=== PATIENT | female | born 1970 | race Caucasian/White ===

== ENCOUNTER 2025-06-12 18:12 | Emergency (ER) | payer OTHER, SELFPAY ==
[2025-06-12 18:14] VITALS: BP 123/68
[2025-06-12 18:41] LABS: Hematocrit 35.4 % (37.0-47.0); Hemoglobin 11.3 g/dL (12.0-16.0); Mean Corp Hgb Conc. 31.9 g/dL (33.0-37.0); Mean Corpuscular Volume 79.4 fL (81.0-99.0); Nucleated Red Blood Cells % 0 %; Platelet Count 398 10^3/uL (130-400); Red Cell Dist. Width 17.7 % (11.5-14.5)
[2025-06-12 19:00] LABS: ALT (SGPT) 12 U/L (0-35); AST (SGOT) 21 U/L (14-36); Albumin 3.7 g/dl (3.5-5.0); Alkaline Phosphatase 70 U/L (38-126); Blood Urea Nitrogen 8 mg/dl (7-17); Calcium 8.9 mg/dl (8.4-10.2); Carbon Dioxide 24 mmol/L (22-30); Chloride 101 mmol/L (98-107); Glucose 94 mg/dl (70-99); Lipase 101 U/L (23-300); Potassium 4.1 mmol/L (3.5-5.1); Sodium 135 mmol/L (135-145); Total Protein 7.3 g/dl (6.3-8.2); eGFR > 60.00
[2025-06-12 19:34] LABS: D-Dimer 2.98 ug/mlFEU (0.00-0.50)
[2025-06-12 20:33] VITALS: BMI 28.9
--- NOTE | 2025-06-12 21:43 | ED.GENMED ---
History of Present Illness
General
Chief Complaint: Abdominal Pain
Source: patient
Time Seen by Provider: 06/12/25 21:27
History of Present Illness
History of Present Illness:
55-year-old female presents to the emergency room complaining of abdominal pain, nausea, vomiting and decreased output of stool into her colostomy. Patient has a history of colorectal cancer. She had surgery at [facility] in 2019. She is currently
undergoing care with oncology at [facility] but through their [place] office. Patient denies any fever or chills. She states at this point she cannot tolerate any oral intake. Patient has taken some oral laxatives without
improvement.
Phy Exam
Physical Exam
Physical Exam:
General: Awake, Alert, Oriented X3. No acute distress.
Vitals: unremarkable
Head: Atraumatic
Eyes: Pupils equal, EOMI
Throat: Airway intact, no exudates
Neck: Trachea midline
Lungs: Clear and equal b/l
Heart: Regular rate, no murmurs
Abd: Soft, diffusely tender, N colostomy prosthesis in place, no stool in the bag, is able to pass a cotton-tipped applicator through the stoma do not encounter any hard stool within the first centimeter or so
Neuro: Nonfocal
Skin: Warm, dry, no rash
Extremities: pulses equal b/l, no edema
Course
Orders/Labs/Results
Orders:
Orders
06/12/25 18:22
Electrocardiogram (*1) Urgent
Reason for Study: Abdominal Pain
EKG- Treatment ONCE
06/12/25 18:28
Complete Blood Count/With Diff Urgent
Comprehensive Metabolic Panel Urgent
DDimer [D-Dimer] Urgent
Lipase Urgent
06/12/25 21:41
0.9% Sodium Chloride 1000 ml [Nss] 1,000 ml IV BOLUS
HYDROmorphone [Dilaudid] 1 mg IV NOW STA
06/12/25 21:42
CT Abd/pelvis W Iv Cont Urgent
Comment:
Reason For Exam: abd pain, no output into stoma
Abnormal Lab Results
06/12/25
18:28
Hgb 11.3 L g/dL
(12.0-16.0)
Hct 35.4 L %
(37.0-47.0)
MCV 79.4 L fL
(81.0-99.0)
MCH 25.3 L pg
(27.0-31.0)
MCHC 31.9 L g/dL
(33.0-37.0)
RDW 17.7 H %
(11.5-14.5)
Absolute Lymphs (auto) 0.7 L 10^3/uL
(1.2-3.4)
Absolute Monos (auto) 0.7 H 10^3/uL
(0.1-0.6)
Lymphocytes % 12.6 L %
(20.5-51.1)
Monocytes % 11.9 H %
(1.7-9.3)
D-Dimer 2.98 H ug/mlFEU
(0.00-0.50)
06/12/25 18:28
06/12/25 18:28
Vital Signs
Initial and Last Documented VS:
Initial Vital Signs
Temp Pulse Resp BP Pulse Ox
98.6 F 91 20 123/68 99
06/12/25 18:14 06/12/25 18:14 06/12/25 18:14 06/12/25 18:14 06/12/25 18:14
Last Documented Vital Signs
Temp Pulse Resp BP Pulse Ox
98.3 F 77 20 127/71 97
06/12/25 22:00 06/12/25 21:49 06/12/25 21:49 06/12/25 23:00 06/12/25 21:49
MDM/Problems Addressed
Differential Diagnosis Includes:
Small bowel obstruction, obstipation of the stoma stool take
MDM/Problems Addressed:
Patient wants abdominal pain and concern for obstruction at rest. Labs here show normal white mild anemia consistent with her chemistries are unremarkable. CT of the abdomen pelvis performed which shows ascites, peritoneal spread of cancer. There
is no obstruction. There is minimal stool burden. No evidence for any acute pathology. I believe the patient's abdominal pain is related to her underlying cancer and peritoneal disease. There is no evidence for obstruction of the ostomy or bowel
obstruction. Do not believe there is any indication for hospitalization. Patient is feeling somewhat better after analgesia here. Stable for discharge home. Follow-up with her oncologist at [place].
*Radiology
Radiology exam reviewed: radiology read reviewed
*Pulse Oximetry
SaO2: 99
Oxygen Mode of Delivery: Room air
Patient hypoxic: no
*Critical Care Note
Total Time (30-74mins, 75-104mins- exclusive of procedures): Not Applicable
ED Attending Note
-
Portions of this chart may have been created with voice recognition software.� Occasional wrong word or��sound alike� substitutions may have occurred due to the inherent limitations of voice recognition software.
Discharge Plan
Departure
Patient Disposition: Home (Routine Discharge)
Date of Disposition: 06/12/25
Time of Disposition: 23:54
Patient with high blood pressure during this ER visit?: No
Condition: Good
Discharge Problem:
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
Instructions: Abdominal Pain
Referrals:
GERMÁN GAMEZ [Other]
Renetta Davis CRNP [Primary Care Provider]
Activity Restrictions/Additional Instructions:
Please follow-up with your oncologist. Return if you have a fever.
Interventions
Interventions:
*Risk Screen - Suicide Last Done: 06/12/25 18:14
*General Assessment Last Done: 06/12/25 18:14
*Neglect/Abuse Screening Last Done: 06/12/25 18:14
*ED- Fall Risk Assessment Last Done: 06/12/25 20:41
*ED COVID-19 Vaccine History Last Done: 06/12/25 20:41
*ED Influenza Vaccine History Last Done: 06/12/25 20:41
GI-Zyazgd-Ttyipwctcd Assessment Last Done: 06/12/25 20:39
Discharge Date and Time
Print Language: IRISH
[2025-06-12] MEDS: NSS 1000 IV (22:09)
[2025-06-12] MEDS: DILAUDID 1 MG IV (22:09)
[2025-06-12 22:57] VITALS: BP 124/66
[2025-06-12 23:00] VITALS: BP 127/71
== END 2025-06-13 01:13 | disposition home or self-care (01) ==
LOC: EMR 18:12
PROVIDERS: Student in an Organized Health Care Education/Training Program; EMERGENCY PHYSICIAN Emergency Medicine; PRIMARYCARE PHYSICIAN Nurse Practitioner Family
DX: R10.9 Unspecified abdominal pain (principal); R11.2 Nausea with vomiting, unspecified; C78.6 Secondary malignant neoplasm of retroperitoneum and peritoneum; R18.0 Malignant ascites; Z85.048 Personal history of other malignant neoplasm of rectum, rectosigmoid junction, and anus; Z93.3 Colostomy status
CPT/HCPCS: 99284; 96374; 96361; 74177; 80053; 83690; 85025; 85379; 93005; Q9967